=== PATIENT | male | born 1965 | race Caucasian/White ===

== ENCOUNTER → 2019-04-28 | Outpatient (CLI) | payer OTHER ==
[2019-04-28 10:10] LABS: CHLORIDE 108 mmol/L (98-107); SODIUM 140 mmol/L (136-145)
[2019-04-28 10:27] LABS: BUN 23 mg/dl (7-24); CHOLESTEROL 142 mg/dL (<200); CREATININE 1.02 mg/dL (0.70-1.30); HDL CHOLESTEROL 49 mg/dl (40-60); LDL CHOLESTEROL 80 mg/dL (9-159); TRIGLYCERIDES 67 mg/dl (<150); VLDL CHOLESTEROL 13 mg/dL (6-40)
== END | disposition home or self-care (01) ==
LOC: LAB 09:21
PROVIDERS: Family Medicine
DX: M19.012 Primary osteoarthritis, left shoulder (principal); M19.011 Primary osteoarthritis, right shoulder; E78.2 Mixed hyperlipidemia; I10 Essential (primary) hypertension

== ENCOUNTER → 2020-11-09 | Outpatient (CLI) | payer OTHER ==
[2020-11-09 10:35] LABS: BUN 17 mg/dl (7-24); CHLORIDE 107 mmol/L (98-107); CREATININE 0.98 mg/dL (0.70-1.30); POTASSIUM 4.2 mmol/L (3.5-5.1); SODIUM 138 mmol/L (136-145)
[2020-11-09 10:38] LABS: CHOLESTEROL 142 mg/dL (<200); HDL CHOLESTEROL 41 mg/dl (40-60); LDL CHOLESTEROL 87 mg/dL (9-159); TRIGLYCERIDES 70 mg/dl (<150); VLDL CHOLESTEROL 14 mg/dL (6-40)
== END | disposition home or self-care (01) ==
LOC: LAB 09:55
PROVIDERS: ATTEND Family Medicine
DX: I10 Essential (primary) hypertension (principal); E78.2 Mixed hyperlipidemia; R73.9 Hyperglycemia, unspecified